=== PATIENT | female | born 1940 | race Caucasian/White ===

== ENCOUNTER → 2018-07-08 | Outpatient (CLI) | payer MEDICARE ==
[2018-07-08 12:24] LABS: Basophils % (A) 1 %; Eosinophils # (A) 0.1 k/uL (0-0.7); Eosinophils % (A) 2 %; HCT 45.9 % (34.0-46.0); HGB 14.8 gm/dL (11.4-16.0); Lymphocytes # (A) 4.1 k/uL (1.0-4.8); Lymphocytes % (A) 47 %; MCH 28.7 pg (25.0-35.0); MCHC 32.2 g/dL (31.0-37.0); Mean Platelet Volume 6.5; Monocytes # (A) 0.4 k/uL (0-1.0); Monocytes % (A) 5 %; Neutrophils # (A) 3.9 k/uL (1.3-7.7); Neutrophils % (A) 45 %; Platelet Count 338 k/uL (150-450); RBC 5.16 m/uL (3.80-5.40); RDW 13.4 % (11.5-15.5); WBC 8.8 k/uL (3.8-10.6)
[2018-07-08 17:10] LABS: Albumin 4.5 g/dL (3.80-4.90); Albumin/Globulin Ratio 1.8 (1.20-2.10); Calcium 9.3 mg/dL (8.7-10.3); Globulin 2.5 g/dL (2.1-3.7); LDL Cholesterol,Calculated 132.8 mg/dL (0.0-131.0); Potassium 4.2 mmol/L (3.5-5.5); Total Bilirubin 0.9 mg/dL (0.3-1.2); VLDL Calculation 23.2 mg/dL (5.00-40.00)
[2018-07-08 17:19] LABS: T4, Free (Free Thyroxine) 1.2 ng/dL (0.80-1.80)
[2018-07-08 19:48] LABS: Hemoglobin A1C 5.8 % (4.0-6.0)
== END | disposition home or self-care (01) ==
LOC: LABWHC1 11:43
PROVIDERS: ATTEND Internal Medicine
DX: Z00.00 Encounter for general adult medical examination without abnormal findings (principal); E78.00 Pure hypercholesterolemia, unspecified; Z79.899 Other long term (current) drug therapy
CPT/HCPCS: 36415; 80053; 80061; 83036; 84439; 84443; 85025

== ENCOUNTER → 2018-10-14 | Outpatient (CLI) | payer MEDICARE ==
--- NOTE | 2018-10-15 13:53 | MM ---
Reason for exam: screening (asymptomatic). Last mammogram was performed 3 years and 2 months ago. History: Patient is postmenopausal. Physical Findings: A clinical breast exam by your physician is recommended on an annual basis and results should be correlated with mammographic findings. MG 3D Screening Mammo W/Cad Bilateral CC and MLO view(s) were taken. Prior study comparison: August 09, 2015, mammogram, performed at [facility]. The breast tissue is extremely dense which could obscure a lesion on mammography. Benign appearing bilateral calcifications. There is a rounded partially visualized obscured lateral posterior depth left asymmetry on 3D CC view image only. ASSESSMENT: Incomplete: need additional imaging evaluation, BI-RAD 0 RECOMMENDATION: Special view mammogram of the left breast. If lesion persists on supplemental views, image directed ultrasound is recommended. [facility] will attempt to contact patient to return for supplemental views and ultrasound if indicated.
== END | disposition home or self-care (01) ==
LOC: RADMAMWWP 13:12
PROVIDERS: ATTEND Internal Medicine
DX: Z12.31 Encounter for screening mammogram for malignant neoplasm of breast (principal)
CPT/HCPCS: 77063; 77067

== ENCOUNTER → 2018-11-10 | Outpatient (CLI) | payer MEDICARE ==
--- NOTE | 2018-11-10 10:49 | MM ---
Reason for exam: additional evaluation requested from abnormal screening. Last mammogram was performed 1 month ago. History: Patient is postmenopausal. Took estrogen for 20 years. Physical Findings: Nurse did not find any significant physical abnormalities on exam. MG 3D Work Up W/Cad LT Spot compression CC, spot compression MLO, and ML view(s) were taken of the left breast. Prior study comparison: October 14, 2018, bilateral MG 3d screening mammo w/cad. August 09, 2015, mammogram, performed at [facility]. Nodular density far posterior left breast at 1 o'clock, 7.5cm from nipple. Ultrasound recommended. These results were verbally communicated with the patient and result sheet given to the patient on 11/10/18. ASSESSMENT: Incomplete: need additional imaging evaluation, BI-RAD 0 RECOMMENDATION: Ultrasound of the left breast.
--- NOTE | 2018-11-10 10:51 | USB ---
Reason for exam: additional evaluation requested from abnormal screening. History: Patient is postmenopausal. Took estrogen for 20 years. US Breast Workup Limited LT Left limited breast ultrasound including focal area of concern, retroareolar and axilla demonstrates a 0.3 x 0.3 x 0.3cm lesion too small to characterize at 12 o'clock, a 0.6 x 0.4 x 0.5cm cystic lesion at 1 o'clock, a 0.6 x 0.5 x 0.7cm lesion at 2 o'clock and duct ectasia at the posterior nipple. These results were verbally communicated with the patient and result sheet given to the patient on 11/10/18. ASSESSMENT: Benign, BI-RAD 2 RECOMMENDATION: Return to routine screening mammogram schedule for both breasts.
== END | disposition home or self-care (01) ==
LOC: RADMAMWWP 08:53
PROVIDERS: ATTEND Internal Medicine
DX: R92.8 Other abnormal and inconclusive findings on diagnostic imaging of breast (principal)
CPT/HCPCS: 77065; 76642; G0279; 77061

== ENCOUNTER → 2019-09-10 | Outpatient (CLI) | payer MEDICARE ==
[2019-09-10 09:42] LABS: Basophils # (A) 0.1 k/uL (0-0.2); Basophils % (A) 1 %; Eosinophils # (A) 0.3 k/uL (0-0.7); Eosinophils % (A) 3 %; HCT 45.1 % (34.0-46.0); HGB 14.5 gm/dL (11.4-16.0); Lymphocytes # (A) 3.9 k/uL (1.0-4.8); Lymphocytes % (A) 42 %; MCH 29.1 pg (25.0-35.0); MCHC 32.1 g/dL (31.0-37.0); MCV 90.6 fL (80.0-100.0); Mean Platelet Volume 6.6; Monocytes # (A) 0.5 k/uL (0-1.0); Monocytes % (A) 5 %; Neutrophils # (A) 4.3 k/uL (1.3-7.7); Neutrophils % (A) 47 %; Platelet Count 351 k/uL (150-450); RBC 4.98 m/uL (3.80-5.40); RDW 12.6 % (11.5-15.5); WBC 9.4 k/uL (3.8-10.6)
[2019-09-10 18:33] LABS: African American GFR (CKD) 70.5 (60.0-200.0); Albumin 4.4 g/dL (3.80-4.90); Albumin/Globulin Ratio 1.83 (1.60-3.17); Anion Gap 7.8 mmol/L (4.00-12.00); BUN/Creat Ratio 13.33 Ratio (12.00-20.00); Calcium 9.5 mg/dL (8.7-10.3); Carbon Dioxide 29.2 mmol/L (21.6-31.8); Chol/HDL Ratio 2.8; Globulin 2.4 g/dL (1.6-3.3); Non-African American GFR(CKD) 60.8 (60.0-200.0); Potassium 4.5 mmol/L (3.5-5.5); Total Bilirubin 0.8 mg/dL (0.2-1.2); Total Protein 6.8 g/dL (6.2-8.2)
[2019-09-10 18:42] LABS: T4, Free (Free Thyroxine) 1.3 ng/dL (0.80-1.80)
== END | disposition home or self-care (01) ==
LOC: LABWHC1 09:24
PROVIDERS: ATTEND Internal Medicine
DX: Z00.00 Encounter for general adult medical examination without abnormal findings (principal); C12 Malignant neoplasm of pyriform sinus; E78.5 Hyperlipidemia, unspecified
CPT/HCPCS: 36415; 80053; 80061; 84439; 84443; 85025

== ENCOUNTER → 2020-10-02 | Outpatient (CLI) | payer MEDICARE ==
[2020-10-02 20:18] LABS: African American GFR (CKD) 80.1 (60.0-200.0); Albumin 4.7 g/dL (3.80-4.90); Albumin/Globulin Ratio 1.96 (1.60-3.17); Anion Gap 7.7 mmol/L (4.00-12.00); BUN/Creat Ratio 21.25 Ratio (12.00-20.00); Calcium 9.5 mg/dL (8.7-10.3); Carbon Dioxide 30.3 mmol/L (21.6-31.8); Chol/HDL Ratio 2.77; Globulin 2.4 g/dL (1.6-3.3); LDL Cholesterol,Calculated 88.2 mg/dL (0.0-131.0); Non-African American GFR(CKD) 69.1 (60.0-200.0); Potassium 4.5 mmol/L (3.5-5.5); Total Bilirubin 0.9 mg/dL (0.3-1.2); Total Protein 7.1 g/dL (6.2-8.2); VLDL Calculation 19.8 mg/dL (5.00-40.00)
[2020-10-02 20:25] LABS: T4, Free (Free Thyroxine) 1.3 ng/dL (0.80-1.80)
[2020-10-02 20:41] LABS: Basophils # (A) 0.03 X 10*3/uL (0.00-0.10); Basophils % (A) 0.4 %; Eosinophils # (A) 0.17 X 10*3/uL (0.04-0.35); Eosinophils % (A) 2.1 %; HCT 45.2 % (37.2-46.3); HGB 14.3 g/dL (12.0-15.0); Lymphocytes # (A) 3.91 X 10*3/uL (0.90-5.00); MCH 29.4 pg (27.0-32.0); MCHC 31.6 g/dL (32.0-37.0); Mean Platelet Volume 9.7 fL (9.5-12.2); Monocytes # (A) 0.71 X 10*3/uL (0.20-1.00); Monocytes % (A) 8.7 %; Neutrophils # (A) 3.32 X 10*3/uL (1.80-7.70); Neutrophils % (A) 40.7 %; Platelet Count 332 X 10*3/uL (140-440); RBC 4.86 X 10*6/uL (4.10-5.20); RDW 12.9 % (11.5-14.5); WBC 8.15 X 10*3/uL (4.50-10.00)
== END ==
LOC: LABWHC1 10:57
PROVIDERS: ATTEND Internal Medicine
DX: Z00.00 Encounter for general adult medical examination without abnormal findings (principal); E78.5 Hyperlipidemia, unspecified; I10 Essential (primary) hypertension
CPT/HCPCS: 36415; 80053; 80061; 84439; 84443; 85025

== ENCOUNTER → 2020-11-27 | Outpatient (CLI) | payer MEDICARE ==
--- NOTE | 2020-11-27 12:40 | US ---
EXAMINATION TYPE: US venous doppler duplex UE RT DATE OF EXAM: 11/27/2020 COMPARISON: NONE CLINICAL HISTORY: 80-year-old female R22.31 right upper limb swelling. The patient received 2nd COVID vaccination 1 week ago, right arm. Edema and redness right upper arm TECHNIQUE: Grayscale, color doppler, spectral doppler imaging performed of the deep veins of the upp er extremities. SIDE PERFORMED: right FINDINGS: There is normal flow, compressibility and vascular waveforms. Additional scanning along the right upp er arm at the site of redness and swelling shows no abnormal fluid collection. Right Arm: no evidence of DVT IMPRESSION: No evidence for DVT within the right upper extremity. Targeted scanning at the site of redness and sw elling shows no abnormal fluid collection.
== END | disposition home or self-care (01) ==
LOC: RADUSWWP 11:56
PROVIDERS: ATTEND Internal Medicine Interventional Cardiology
DX: R22.31 Localized swelling, mass and lump, right upper limb (principal)

== ENCOUNTER 2022-01-08 09:32 | Inpatient (IN) | payer MEDICARE ==
--- NOTE | 2022-01-08 09:50 | ED ---
General Adult HPI - General Chief complaint: Neuro Symptoms/Deficit Stated complaint: Stroke Time Seen by Provider: 01/08/22 09:32 Source: patient, EMS, RN notes reviewed Mode of arrival: EMS Limitations: no limitations - History of Present Illness Initial comments: Patient is a pleasant 81-year-old female presenting to the emergency department with concern for stroke. Patient was drinking her coffee at the time. Onset was 8 AM. Last known well was 8 AM. No history of similar symptoms previously. Patient did not feel well. Patient noticed some speech problems. EMS reports speech problems and left-sided facial droop. They did not notice other symptoms. Patient denies any extremity weakness. No history of similar symptoms previously. Patient states she did have an episode around a week ago where she had some difficulty with vision of her right eye. Otherwise no history of similar symptoms previously. No new onset or severe headache. - Related Data Home Medications Medication Instructions Recorded Confirmed Omeprazole 20 mg PO HS 05/23/14 01/08/22 Simvastatin [Zocor] 80 mg PO HS 05/23/14 01/08/22 amLODIPine [Norvasc] 2.5 mg PO HS 01/08/22 01/08/22 Allergies Allergy/AdvReac Type Severity Reaction Status Date / Time No Known Allergies Allergy Verified 01/08/22 09:58 Review of Systems ROS Statement: Those systems with pertinent positive or pertinent negative responses have been documented in the HPI. ROS Other: All systems not noted in ROS Statement are negative. Constitutional: Denies: fever Eyes: Reports: as per HPI. Denies: eye pain ENT: Denies: ear pain Respiratory: Denies: cough, dyspnea Cardiovascular: Denies: chest pain Endocrine: Denies: fatigue Gastrointestinal: Denies: abdominal pain Genitourinary: Denies: urgency Musculoskeletal: Denies: back pain Skin: Denies: rash Neurological: Reports: as per HPI. Denies: headache, confusion Past Medical History Past Medical History: GERD/Reflux, Hyperlipidemia History of Any Multi-Drug Resistant Organisms: None Reported Past Surgical History: Cholecystectomy, Hysterectomy Past Anesthesia/Blood Transfusion Reactions: No Reported Reaction Past Psychological History: No Psychological Hx Reported Past Alcohol Use History: Daily Past Drug Use History: None Reported General Exam Limitations: no limitations General appearance: alert, in no apparent distress Head exam: Present: normocephalic Eye exam: Present: normal appearance, PERRL, EOMI ENT exam: Present: normal oropharynx Neck exam: Present: normal inspection Respiratory exam: Present: normal lung sounds bilaterally Cardiovascular Exam: Present: regular rate, normal rhythm GI/Abdominal exam: Present: soft. Absent: tenderness Extremities exam: Present: normal inspection Neurological exam: Present: alert, oriented X3, CN II-XII intact (Except for left-sided facial droop) Expanded Neurological exam: Present: protecting the airway, other (Mildly slurred speech) Patient oriented to: Present: person, place, time Cranial nerves: Facial Sensation: Normal, Facial Palsy with Forehead Movement: Abnormal Left Sensory exam: Upper Extremity Light Touch: Normal, Lower Extremity Light Touch: Normal Motor strength exam: RUE: 5, LUE: 5, RLE: 5, LLE: 5 Eye Response: (4) open spontaneously Motor Response: (6) obeys commands Verbal Response: (5) oriented Psychiatric exam: Present: normal affect, normal mood Skin exam: Present: normal color Course Vital Signs 01/08/22 09:39 Temperature 96 F L Pulse Rate 90 Respiratory 18 Rate Blood Pressure 151/72 O2 Sat by Pulse 96 Oximetry - Reevaluation(s) Reevaluation #1: 01/08/22 09:48 coordinator of health services did discuss case with neurology Dr. Brown who agrees patient is not a candidate for TPA secondary to risk outweighed the benefit. Patient has mild symptoms. EKG Findings - EKG Comments: EKG Findings:: Sinus rhythm at 88. MD 173. QRS 68. QT 356. QTc 41. Normal axis. Normal QRS. Nonspecific T waves. Medical Decision Making - Medical Decision Making Patient reevaluated and updated. [facility] [place] physician group has been paged for hospital call. - Lab Data Result diagrams: 01/08/22 09:50 Lab Results 01/08/22 01/08/22 01/08/22 Range/Units 09:50 09:50 09:50 WBC 11.0 H (3.8-10.6) k/uL RBC 4.74 (3.80-5.40) m/uL Hgb 13.7 (11.4-16.0) gm/dL Hct 43.2 (34.0-46.0) % MCV 91.2 (80.0-100.0) fL MCH 29.0 (25.0-35.0) pg MCHC 31.8 (31.0-37.0) g/dL RDW 13.0 (11.5-15.5) % Plt Count 314 (150-450) k/uL MPV 7.2 Neutrophils % 55 % Lymphocytes % 34 % Monocytes % 6 % Eosinophils % 3 % Basophils % 1 % Neutrophils # 6.0 (1.3-7.7) k/uL Lymphocytes # 3.7 (1.0-4.8) k/uL Monocytes # 0.6 (0-1.0) k/uL Eosinophils # 0.3 (0-0.7) k/uL Basophils # 0.1 (0-0.2) k/uL PT 10.4 (9.0-12.0) sec INR 1.0 (<1.2) APTT 23.8 (22.0-30.0) sec POC Glucose (mg/dL) 99 (75-99) mg/dL POC Glu Presentation Team Member Mara Hauser - Radiology Data Radiology results: report reviewed (CT brain shows no acute hemorrhage or infarct. Bilateral anterior basal ganglion hypodensities could represent infarcts of indeterminate age first is chronic extremity changes.), image reviewed (Chest x-ray reviewed) Disposition Clinical Impression: Cerebrovascular accident (CVA) Disposition: ADMITTED IP TO THIS HOSP Is patient prescribed a controlled substance at d/c from ED?: No Referrals: Mario Cuevas MD [Primary Care Provider] - 1-2 days Time of Disposition: 10:10
[2022-01-08 09:51] LABS: Glucose,Whole Blood 99 mg/dL (75-99)
[2022-01-08 09:57] LABS: Basophils # (A) 0.1 k/uL (0-0.2); Basophils % (A) 1 %; Eosinophils # (A) 0.3 k/uL (0-0.7); Eosinophils % (A) 3 %; HCT 43.2 % (34.0-46.0); HGB 13.7 gm/dL (11.4-16.0); Lymphocytes # (A) 3.7 k/uL (1.0-4.8); Lymphocytes % (A) 34 %; MCHC 31.8 g/dL (31.0-37.0); MCV 91.2 fL (80.0-100.0); Mean Platelet Volume 7.2; Monocytes # (A) 0.6 k/uL (0-1.0); Monocytes % (A) 6 %; Neutrophils % (A) 55 %; Platelet Count 314 k/uL (150-450); RBC 4.74 m/uL (3.80-5.40)
--- NOTE | 2022-01-08 09:59 | CT ---
EXAMINATION TYPE: CT brain wo con for TPA DATE OF EXAM: 01/08/2022 COMPARISON: None available HISTORY: neuro deficit, Lt facial droop, slurred speech CT DLP: 1094.8 mGycm Automated exposure control for dose reduction was used. TECHNIQUE: CT scan of the brain is performed without IV contrast administration. FINDINGS: Brain volume loss changes, likely age-related. Bilateral cerebral white matter hypodensities, likely representing chronic microvascular ischemic changes. Bilateral anterior basal ganglia hypodensities w hich could represent infarcts of indeterminate age versus ischemic changes. Scattered arterial athero sclerotic calcifications. No acute intracranial hemorrhage. No gross acute cortical infarct. No midline shift, herniation or ve ntriculomegaly. Unremarkable basal cisterns, sella and CP angles. No gross space-occupying lesion, vasogenic edema or mass effect. Unremarkable orbits. Mucosal thickening of the maxillary sinuses and ethmoid air cells. Clear mastoid air cells. Osteopenia. IMPRESSION: No acute intracranial hemorrhage or gross acute cortical infarct. Bilateral anterior basal ganglia hy podensities which could represent infarcts of indeterminate age versus chronic ischemic changes, plea se correlate clinically. Further MRI with DWI assessment can be considered if clinically required. Ot her findings as described above.
[2022-01-08 10:06] LABS: Partial Thromboplastin Time 23.8 sec (22.0-30.0); Prothrombin Time 10.4 sec (9.0-12.0)
[2022-01-08] MEDS ORDERED: ASPIRIN 325 MG TAB PO STA (10:10)
[2022-01-08 10:13] LABS: Albumin 3.4 g/dL (3.5-5.0); Calcium 8.4 mg/dL (8.4-10.2); Potassium 4.5 mmol/L (3.5-5.1); Total Bilirubin 1.4 mg/dL (0.2-1.3); Total Protein 6.5 g/dL (6.3-8.2)
--- NOTE | 2022-01-08 10:29 | CT ---
EXAMINATION TYPE: CT angio head neck DATE OF EXAM: 01/08/2022 HISTORY: Left side facial droop and slurred speech COMPARISON: Nonenhanced CT brain performed earlier same day CT DLP: 404.3 mGycm. Automated Exposure Control for Dose Reduction was Utilized. TECHNIQUE: CTA scan of the head and neck is performed with IV Contrast, patient injected with 65ml m L of Isovue 370, axial images are obtained, coronal and sagittal reformatted images are reviewed. 3D reconstructed images are created on an independent workstation and reviewed. FINDINGS: Carotid/Vascular Structures: Scattered arterial atherosclerotic calcifications. 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 Other focal stenosis is seen involving the s uperior M2 branch of the left MCA yet patent distally. type left SURGICAL ENDOSCOPIST. Hypoplastic A1 segment of the left EFREN. Otherwise normal caliber and enhancement of the remainder of the intracranial arteries and major neck arteries without other significant stenosis, occlusion, dissection, aneurysm or AV ma lformation. Patent major intracranial venous sinuses. Other: No intracranial abnormal enhancement. Chronic inflammatory changes of the maxillary sinuses. M ild degenerative changes of the cervical spine. Micronodules are seen in the right lung apex. 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 No definite arterial occlusion or other significant stenosis seen in the neck or intracranial arterie s. Other findings as described above.
--- NOTE | 2022-01-08 10:43 | XR ---
EXAMINATION TYPE: XR chest 1V portable DATE OF EXAM: 01/08/2022 COMPARISON: NONE HISTORY: Altered mental status and weakness. TECHNIQUE: Single AP portable frontal upright view of the chest is obtained. FINDINGS: There is mild chronic parenchymal change without suspicious focal air space opacity, pleur al effusion, or pneumothorax seen. The cardiac silhouette size is within normal limits. The osseou s structures are demineralized. IMPRESSION: No acute process.
--- NOTE | 2022-01-08 11:36 | CA ---
Transthoracic Echo Report Name: Theodora Nickerson Age: 81 Gender: F : 1940 Exam Date: 01/08/2022 11:10 Exam Location: [facility] Ht (in): 66 Wt (lb): 190 Ordering Physician: Mor Escalante DO Attending/Referring Phys: Casing Material Weigher Natalia De Leon RDCS Procedure CPT: Indications: Thrombus Cardiac Hx: Technical Quality: Fair Contrast 1: Total Dose (mL): Contrast 2: Total Dose (mL): MEASUREMENTS (Male / Female) Normal Values 2D ECHO LV Diastolic Diameter PLAX 2.6 cm 4.2 - 5.9 / 3.9 - 5.3 cm LV Systolic Diameter PLAX 1.3 cm IVS Diastolic Thickness 1.3 cm 0.6 - 1.0 / 0.6 - 0.9 cm LVPW Diastolic Thickness 1.4 cm 0.6 - 1.0 / 0.6 - 0.9 cm LV Relative Wall Thickness 1.0 M-MODE Aortic Root Diameter MM 3.1 cm LA Systolic Diameter MM 2.3 cm LA Ao Ratio MM 0.7 MV E Point Septal Separation 0.7 cm AV Cusp Separation MM 1.5 cm DOPPLER AV Peak Velocity 135.3 cm/s AV Peak Gradient 7.3 mmHg LVOT Peak Velocity 116.3 cm/s LVOT Peak Gradient 5.4 mmHg MV Area PHT 2.9 cm??? MR Peak Velocity 136.2 cm/s MR Peak Gradient 7.4 mmHg Mitral E Point Velocity 60.2 cm/s Mitral A Point Velocity 91.3 cm/s Mitral E to A Ratio 0.7 MV Deceleration Time 263.1 ms TR Peak Velocity 180.4 cm/s TR Peak Gradient 13.0 mmHg Right Ventricular Systolic Press 17.0 mmHg FINDINGS Left Ventricle Moderately increased septal wall thickness. Moderately increased posterior wall thickness. Left ventricular cavity size normal. Left ventricular ejection fraction is estimated at 55-60 %. Right Ventricle The right ventricle is normal in size and function. Right Atrium The right atrium is normal in size. Left Atrium The left atrium is normal in size. Mitral Valve Structurally normal mitral valve without significant stenosis or prolapse. There is a trace of mitral regurgitation. Aortic Valve Structurally normal aortic valve without significant sclerosis or stenosis.focal thickening of the aortic valve cusps. There is no aortic regurgitation. Tricuspid Valve Structurally normal tricuspid valve without significant stenosis. Pulmonary artery systolic pressure is normal. Trace tricuspid regurgitation. Pulmonic Valve Structurally normal pulmonic valve without significant stenosis. There is no pulmonic regurgitation. Pericardium Normal pericardium without effusion. Aorta Normal aortic root dimension. CONCLUSIONS concentric left ventricular hypertrophy with normal LV systolic function Aortic sclerosis without any stenosis Previewed by: Dr. Jamie Redmond MD (Electronically Signed) Final Date: 08 Jan 2022 11:35
--- NOTE | 2022-01-08 13:23 | P.HPIM ---
History of Present Illness H&P Date: 01/08/22 History of Presenting Illness: Patient is a very pleasant 81-year-old female with a past medical history of hypertension, hyperlipidemia, and GERD. She presented to the emergency department with a chief complaint of speech problems and left sided facial dr oop. Patient reports that this morning around 8 AM she was sitting down drinking coffee got up to take her 's temperature and cover him with a blanket. Patient reports she noticed that her speech started to sound slightly and that her left hand was not communicating with her brain because she was not able to go/down the thermometer with a blanket. She reports she was then told she had some left-sided facial droop and felt almost like a "fog" come over her so she called the ambulance for transport to the hospital. Patient denied experiencing any recent illnesses or exposure to known ill contacts, headache, lightheadedness, dizziness, changes in her vision or hearing, dysphagia, chest pain, palpitations, shortness of breath, or experiencing any numbness or focal weakness in her extremities. At time of evaluation, pt continued to have noted slight left sided facial droop however speech was clear and pt reported full resolution of left hand coordination and function. Patient underwent full evaluation in the emergency department. She was found to have mild leukocytosis with WBC count of 11.0 and slightly elevated total bili of 1.4. CT brain revealed bilateral anterior basal ganglia hypodensities possibly representing infarcts of indeterminate age versus chronic ischemic changes. CTA head and neck revealed severe focal stenosis of the M1 segment of the right MCA with focal stenosis of the left superior M2 branch of the left MCA with no other noted definite arterial occlusion or other significant stenosis seen in the neck or intracranial arteries. EKG showing normal sinus rhythm at 88 bpm with no noted T-wave or ST abnormalities showing no signs of acute ischemia. Chest x-ray negative for acute cardiopulmonary process. Patient was given aspirin 325 mg 1 dose and admitted under our services with consultation to neurology. clinic coordinator was contacted by ED physician and it was reported that interventional neurologist stated patient was not a candidate for TPA. Review of systems: Pertinent positives and negatives as discussed in HPI, a complete review of systems was performed and all other systems are negative. Physical exam: Vital signs reviewed and stable. General: Nontoxic, no distress and appears stated age. Derm: Skin warm and dry, normal coloration for ethnicity. Head: Atraumatic, normocephalic and symmetric. Eyes: EOMs intact, no lid lag, and anicteric sclera Mouth: no lip lesions, mucus membranes moist Cardiovascular: regular rate and rhythm with normal S1S2, systolic murmur, positive posterior tibial pulses bilaterally, and cap refill < 2 seconds. Lungs: Respirations even, regular, and unlabored on room air. Lungs CTA bilaterally, no rhonchi, no rales, no wheezing, and no accessory muscle usage. Abdominal: soft, nontender to palpation, no guarding, no appreciable organomegaly Ext: ROM intact. No gross muscle atrophy, no edema, no contractures Neuro: Speech clear, face symmetrical and CN II-XII grossly intact with no noted focal neuro deficits Psych: Alert and oriented to person, place, time, and situation. Appropriate and pleasant affect. Assessment and Plan of Care: Left-sided facial droop, speech deficits, and loss of hand coordination/function likely secondary to acute vs subacute ischemic CVA Hypertension Hyperlipidemia -Consult neurology, appreciate further recommendations -Continue NIH assessments and neuro checks -Telemetry monitoring -Lipid profile and hemoglobin A1c with a.m. labs -Echocardiogram -Continue daily aspirin and atorvastatin -Allow for permissive hypertension, may resume home medication regimen with amlodipine 2.5 mg nightly tomorrow evening. -PT/OT consult -Bedside swallow eval and then may resume heart healthy diet if no difficulties with swallowing. The patient is admitted with an anticipated greater than 2 midnight stay for evaluation of left-sided facial droop, speech deficits, and was having and coordination with concerns of acute versus subacute ischemic CVA. CODE STATUS: full code DVT prophylaxis: Lovenox Discussed with: patient and RN Anticipated discharge date: clinical course to determine, likely 2-[address]: home A total of 41 minutes was spent on the care of this complex patient more than 50% of the time was spent in counseling and care coordination. I reviewed the documentation as provided by the JADE above, who is the original author of this note. I agree with the documented assessment and plan, with the following changes: none Past Medical History Past Medical History: GERD/Reflux, Hyperlipidemia History of Any Multi-Drug Resistant Organisms: None Reported Past Surgical History: Cholecystectomy, Hysterectomy Past Anesthesia/Blood Transfusion Reactions: No Reported Reaction Past Psychological History: No Psychological Hx Reported Past Alcohol Use History: Daily Past Drug Use History: None Reported Medications and Allergies Home Medications Medication Instructions Recorded Confirmed Type Omeprazole 20 mg PO HS 05/23/14 01/08/22 History Simvastatin [Zocor] 80 mg PO HS 05/23/14 01/08/22 History amLODIPine [Norvasc] 2.5 mg PO HS 01/08/22 01/08/22 History Allergies Allergy/AdvReac Type Severity Reaction Status Date / Time No Known Allergies Allergy Verified 01/08/22 09:58 Physical Exam Vitals: Vital Signs Temp Pulse Resp BP Pulse Ox 01/08/22 10:12 85 18 149/76 96 01/08/22 09:39 96 F L 90 18 151/72 96 Intake and Output 01/07/22 01/08/22 01/08/22 22:59 06:59 14:59 Other: Weight 86.5 kg Results CBC & Chem 7: 01/08/22 09:50 01/08/22 09:50 Labs: Abnormal Lab Results - Last 24 Hours (Table) 01/08/22 01/08/22 Range/Units 09:50 09:50 WBC 11.0 H (3.8-10.6) k/uL Sodium 136 L (137-145) mmol/L Glucose 108 H (74-99) mg/dL Total Bilirubin 1.4 H (0.2-1.3) mg/dL Albumin 3.4 L (3.5-5.0) g/dL
[2022-01-08] MEDS ORDERED: CLOPIDOGREL 75 MG TAB PO STA (13:40)
--- NOTE | 2022-01-08 14:02 | P.CNNES ---
History of Present Illness Consult date: 01/08/22 Requesting physician: Mor Escalante Reason for Consult: cva History of Present Illness: This is an 81-year-old woman with history of hypertension and hypercholesteremia who presented emergency department on 01/08/2022 for left facial droop and lack of hand coordination. Patient stated that the she woke up early in the morning today and she was doing well until 8a.m. today. She felt there is loss of coordination of hand and did not know if left or right. Denies of any other neurological issues. Denies of numbness, visual disturbance, difficulty getting her words out. EMS felt she has speech problems per ED team. About one week ago she had vision loss over the entire right eye that last 10 seconds but did not seek any medication attention. She denies of headaches. She is not on antiplatelets or anticoagulants. She denies history of TIA or stroke otherwise. Denies tobacco use or illicit drug use. Some of the work-up: CT of the head is reported as no acute intracranial hemorrhage or gross acute cortical infarct. Bilateral anterior basal ganglia hypodensities which could represent infarct of and determine age versus chronic ischemic changes. I personally reviewed the CT of the head and I agree there is no acute subacute changes and I feel the basal ganglia and it's reported is not acute and there at least either subacute to more chronic. CT angiography of the head and neck was reported as severe focal stenosis of the M1 segment of the right MCA with focal stenosis of the left superior M2 branch of the left MCA. No definite of arterial occlusion or other significant stenosis in the neck or intracranial arteries. Stroke pager was activated and the ED spoke with the the stroke attending who felt the patient is not IV TPA candidate since the risk outweighed the benefits because of the NIH stroke scale is low, mild symptoms. Review of Systems Review of system: The 12 point system was reviewed and apparent positive and negative per HPI. Past Medical History Past Medical History: GERD/Reflux, Hyperlipidemia History of Any Multi-Drug Resistant Organisms: None Reported Past Surgical History: Cholecystectomy, Hysterectomy Past Anesthesia/Blood Transfusion Reactions: No Reported Reaction Past Psychological History: No Psychological Hx Reported Past Alcohol Use History: Daily Past Drug Use History: None Reported Medications and Allergies Home Medications Medication Instructions Recorded Confirmed Type Omeprazole 20 mg PO HS 05/23/14 01/08/22 History Simvastatin [Zocor] 80 mg PO HS 05/23/14 01/08/22 History amLODIPine [Norvasc] 2.5 mg PO HS 01/08/22 01/08/22 History Allergies Allergy/AdvReac Type Severity Reaction Status Date / Time No Known Allergies Allergy Verified 01/08/22 09:58 Physical Examination - Vital Signs Vital Signs: Vital Signs Temp Pulse Resp BP Pulse Ox 01/08/22 10:12 85 18 149/76 96 01/08/22 09:39 96 F L 90 18 151/72 96 Intake and Output 01/07/22 01/08/22 01/08/22 22:59 06:59 14:59 Other: Weight 86.5 kg GENERAL: The patient is lying in bed and is not in acute distress. CHEST: The heart rate is regular rate rhythm. No murmurs to auscultation. No carotid bruit bilaterally. LUNG: Clear to auscultation bilaterally no wheezing noted throughout. Not labored breathing. ABDOMEN/GI: Bowel sounds present in all 4 quadrants. No tenderness to palpation throughout. NEUROLOGICAL: Higher mental function: The patient is awake, alert, oriented to self, place and time. Patient is following commands. No aphasia and no neglect. Cranial nerves: The pupils are round, equal and reactive to light and accommodation. Visual [place] are full to confrontation throughout. Extraocular movement is intact no nystagmus is noted. Facial sensation is normal to touch throughout. The facial strength is left nasolabial flattening. Hearing is moderately to severely decreased bilaterally to hand rub. Tongue is midline and moved [id number] without any difficulty. No dysarthria is noted. Shoulder shrug is normal bilaterally. Motor: Gait is deferred. The strength is 5 over 5 throughout. Normal tone and bulk. Cerebellum: Normal finger to nose heel to jean bilaterally. Sensation: Sensation is normal to touch throughout. Reflexes (right/left): 2+ thorughout. Plantars are downgoing bilaterally. NIH STROKE SCALE (On my examination): 1 (left facial droop). Results - Laboratory Findings CBC and BMP: 01/08/22 09:50 01/08/22 09:50 Abnormal Lab Findings: Abnormal Labs 01/08/22 01/08/22 09:50 09:50 WBC 11.0 H Sodium 136 L Glucose 108 H Total Bilirubin 1.4 H Albumin 3.4 L Assessment and Plan Assessment: Acute left facial droop with loss of hand coordination: Due to acute ischemic stroke. No IV tpa since low NIH/mild symptoms and risk outweigh benefit. 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 The patient to be on dual antiplatelets for now. I loaded the patient on the Plavix 300 mg once. Lipitor 40 mg daily started. Patient did not get any intervention for the stenosis for intracranial stenosis since low NIH. If the patient has worsening of her stroke symptoms please activate the stroke pager for consideration of intervention. 2-D echo, lipid panel, hemoglobin A1c are ordered and is pending PT, OT and EXTENSION DIVISION DIRECTOR are consulted Continue neuro checks On cardiac monitoring Recommend permissive hypertensive for 24 hours only controlled blood pressure of the systolic is more than 220 and diastolic is more than 110 and we'll defer that to the primary team We'll defer the rest of the medical management to the primary team. For DVT prophylaxis on Lovenox Thank you for consultation. Gavin Velazquez M.D. Neuro-hospitalist Time with Patient: Greater than 30
[2022-01-08] MEDS: SODIUM CHLORIDE 0.9% 1,000 ML IV SCH (18:06)
[2022-01-09] MEDS: SODIUM CHLORIDE 0.9% 1,000 ML IV SCH ×4 (01:56→23:35)
[2022-01-09] MEDS: ENOXAPARIN 40 MG/0.4 ML SYRINGE SQ SCH (09:08)
[2022-01-09] MEDS: ATORVASTATIN 40 MG TAB PO SCH (09:09)
[2022-01-09] MEDS: CLOPIDOGREL 75 MG TAB PO SCH (09:09)
[2022-01-09] MEDS: ASPIRIN 325 MG TAB PO SCH (09:09)
--- NOTE | 2022-01-09 12:06 | P.PN ---
Subjective Progress Note Date: 01/09/22 The patient is seen at bedside and feel about the same. Denies any new neurological issues. She feels much better compared to her initial presentation. Objective - Vital Signs Vital signs: Vital Signs Temp 98 F 01/09/22 05:13 Pulse 86 01/09/22 05:13 Resp 16 01/09/22 05:13 BP 154/68 01/09/22 05:13 Pulse Ox 97 01/09/22 05:13 Intake & Output 01/08/22 01/09/22 01/09/22 18:59 06:59 18:59 Intake Total 290 120 Output Total 2 Balance 290 118 Weight 86.5 kg 83.7 kg Intake: Intake, IV Titration 50 Amount Sodium Chloride 0.9% 1, 50 000 ml @ 100 mls/hr IV . Q10H DARÍO Rx#:[id number] Oral 240 120 Output: Urine 2 Other: # Voids 1 1 - Exam GENERAL: The patient is lying in bed and is not in acute distress. NEUROLOGICAL: Higher mental function: The patient is awake, alert, oriented to self, place and time. Patient is following commands. No aphasia and no neglect. Cranial nerves: The pupils are round, equal and reactive to light and accommodation. Visual [place] are full to confrontation throughout. Extraocular movement is intact no nystagmus is noted. Facial sensation is normal to touch throughout. The facial strength is left nasolabial flattening. Hearing is moderately to severely decreased bilaterally to hand rub. Tongue is midline and moved [id number] without any difficulty. No dysarthria is noted. Shoulder shrug is normal bilaterally. Motor: Gait is deferred. The strength is 5 over 5 throughout. Normal tone and bulk. Cerebellum: Normal finger to nose heel to jean bilaterally. Sensation: Sensation is normal to touch throughout. Reflexes (right/left): 2+ thorughout. Plantars are downgoing bilaterally. WORK-UP: HbA1c: 5.7 CT of the head is reported as no acute intracranial hemorrhage or gross acute cortical infarct. Bilateral anterior basal ganglia hypodensities which could represent infarct of and determine age versus chronic ischemic changes. I personally reviewed the CT of the head and I agree there is no acute subacute ch anges and I feel the basal ganglia and it's reported is not acute and there at least either subacute to more chronic. CT angiography of the head and neck was reported as severe focal stenosis of the M1 segment of the right MCA with focal stenosis of the left superior M2 branch of the left MCA. No definite of arterial occlusion or other significant stenosis in the neck or intracranial arteries. 2D echo: Concentric left ventircular hypertrophy with normal LV systolic function. Aortic sclerosis without any stenosis. Left atrium is normal in size. - Labs CBC & Chem 7: 01/08/22 09:50 01/08/22 09:50 Assessment and Plan Assessment: Acute left facial droop with loss of hand coordination: Due to acute ischemic stroke. No IV tpa since low NIH/mild symptoms and risk outweigh benefit. 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 Continue aspirin 325mg daily and Plavix 75mg daily. The patient to be on dual antiplatelets for now. ContinueLipitor 40 mg daily started. Patient did not get any intervention for the stenosis for intracranial stenosis since low NIH. If the patient has worsening of her stroke symptoms please activate the stroke pager for consideration of intervention. Pending Lipid panel. PT, OT and UTILIZATION COORDINATOR are consulted Continue neuro checks On cardiac monitoring We'll defer the rest of the medical management to the primary team. For DVT prophylaxis on Lovenox The plan is discussed with the patient. Gavin Velazquez M.D. Neuro-hospitalist Time with Patient: Less than 30
[2022-01-09 12:12] LABS: Chol/HDL Ratio 2.75 Ratio; LDL Cholesterol,Calculated 60.3 mg/dL (0.0-131.0)
--- NOTE | 2022-01-09 13:42 | MR ---
EXAMINATION TYPE: MR brain wo con DATE OF EXAM: 01/09/2022 1:37 PM COMPARISON: NONE HISTORY: Stroke, left facial weakness. FINDINGS: The ventricles, basal cisterns and sulci overlying the cerebral convexities are moderately enlarged. There is evidence of mild to moderate periventricular white matter ischemic demyelination. Remote deep white matter insults are also noted. No acute edema is seen on diffusion weighted imaging. There is no evidence for midline shift or mass effect. Acute intracranial hemorrhage or extra-axial collection is not evident. Chronic pansinusitis. IMPRESSION: Age-related atrophic and chronic small vessel ischemic change. No acute intracranial process at this time.
--- NOTE | 2022-01-09 14:15 | P.PN ---
Subjective Progress Note Date: 01/09/22 Hospital Course: Patient is a very pleasant 81-year-old female with a past medical history of hypertension, hyperlipidemia, and GERD. She presented to the emergency department with a chief complaint of speech problems and left sided facial droop. Patient reports that this morning around 8 AM she was sitting down drinking coffee got up to take her 's temperature and cover him with a blanket. Patient reports she noticed that her speech started to sound slightly and that her left hand was not communicating with her brain because she was not able to go/down the thermometer with a blanket. She reports she was then told she had some left-sided facial droop and felt almost like a "fog" come over her so she called the ambulance for transport to the hospital. Patient underwent full evaluation in the emergency department. She was found to have mild leukocytosis with WBC count of 11.0 and slightly elevated total bili of 1.4. CT brain revealed bilateral anterior basal ganglia hypodensities possibly representing infarcts of indeterminate age versus chronic ischemic changes. CTA head and neck revealed severe focal stenosis of the M1 segment of the right MCA with focal stenosis of the left superior M2 branch of the left MCA with no other noted definite arterial occlusion or other significant stenosis seen in the neck or intracranial arteries. EKG showing normal sinus rhythm at 88 bpm with no noted T-wave or ST abnormalities showing no signs of acute ischemia. Chest x-ray negative for acute cardiopulmonary process. Patient was given aspirin 325 mg 1 dose and admitted under our services with consultation to neurology. computer security coordinator was contacted by ED physician and it was reported that interventional neurologist stated patient was not a candidate for TPA. Lipid profile unremarkable. Hemoglobin A1c also normal findings at 5.7%. E chocardiogram revealing preserved EF of 55-60% with concentric left ventricular hypertrophy and aortic sclerosis without stenosis. MRI scheduled for 10:30 AM. Physical exam: Patient was seen and fully evaluated at bedside this morning. She was sitting u p in the edge of the bed and appeared to be doing well. Patient reports she feels much better than yesterday. She continues to have mild facial droop of the left corner of her mouth otherwise denied experiencing any complaints including headache, lightheadedness, dizziness, changes in her vision or hearing, dysphagia, chest pain, palpitations, shortness of breath, or experiencing any numbness or focal weakness in her extremities. She continues to have clear speech and continued resolution of left hand coordination and function. Vital signs stable. We have allowed for permissive hypertension and patient to resume her daily medication regimen with amlodipine later this evening. Patient is scheduled to go down for MRI later this morning at 10:30 AM. We will continue DVT prophylaxis with Lovenox as well as daily aspirin, atorvastatin, and Plavix. Lipid profile unremarkable. Hemoglobin A1c also normal findings at 5.7. Vital signs reviewed and stable. General: Nontoxic, no distress and appears stated age. Derm: Skin warm and dry, normal coloration for ethnicity. Head: Atraumatic, normocephalic and symmetric. Eyes: EOMs intact, no lid lag, and anicteric sclera Mouth: no lip lesions, mucus membranes moist Cardiovascular: regular rate and rhythm with normal S1S2, systolic murmur, positive posterior tibial pulses bilaterally, and cap refill < 2 seconds. Lungs: Respirations even, regular, and unlabored on room air. Lungs CTA bi laterally, no rhonchi, no rales, no wheezing, and no accessory muscle usage. Abdominal: soft, nontender to palpation, no guarding, no appreciable organomegaly Ext: ROM intact. No gross muscle atrophy, no edema, no contractures Neuro: Speech clear, face with mild left sided facial droop. CN II-XII grossly intact with no other noted focal neuro deficits Psych: Alert and oriented to person, place, time, and situation. Appropriate and pleasant affect. Assessment and Plan of Care: Left-sided facial droop, speech deficits, and loss of hand coordination/function likely secondary to acute vs subacute ischemic CVA Hypertension Hyperlipidemia -Consult neurology, appreciate further recommendations -Continue NIH assessments and neuro checks -Telemetry monitoring -Lipid profile unremarkable and hemoglobin A1c 5.7%. -Echocardiogram revealing EF of 55-60%, concentric left ventricular hypertrophy and aortic sclerosis without stenosis. -Continue daily aspirin, Plavix and atorvastatin -Allow for permissive hypertension, may resume home medication regimen with amlodipine 2.5 mg nightly tomorrow evening. -PT/OT consult -Bedside swallow eval and then may resume heart healthy diet if no difficulties with swallowing. CODE STATUS: Full code DVT prophylaxis: Lovenox Discussed with: patient and RN Anticipated discharge date: clinical course to determine, possibly tomorrow morning pending MRI results and neurology recommendations. Anticipated discharge place: home A total of 37 minutes was spent on the care of this complex patient more than 50% of the time was spent in counseling and care coordination. I reviewed the documentation as provided by the JADE above, who is the original author of this note. I agree with the documented assessment and plan, with the following changes: none Objective - Vital Signs Vital signs: Vital Signs Temp 98 F 01/09/22 05:13 Pulse 86 01/09/22 05:13 Resp 16 01/09/22 05:13 BP 154/68 01/09/22 05:13 Pulse Ox 97 01/09/22 05:13 Intake & Output 01/08/22 01/09/22 01/09/22 18:59 06:59 18:59 Intake Total 290 Balance 290 Weight 86.5 kg 83.7 kg Intake: Intake, IV Titration 50 Amount Sodium Chloride 0.9% 1, 50 000 ml @ 100 mls/hr IV . Q10H DARÍO Rx#:[id number] Oral 240 Other: # Voids 1 1 - Labs CBC & Chem 7: 01/08/22 09:50 01/08/22 09:50 Labs: Abnormal Lab Results - Last 24 Hours (Table) 01/08/22 01/08/22 Range/Units 09:50 09:50 WBC 11.0 H (3.8-10.6) k/uL Sodium 136 L (137-145) mmol/L Glucose 108 H (74-99) mg/dL Total Bilirubin 1.4 H (0.2-1.3) mg/dL Albumin 3.4 L (3.5-5.0) g/dL
[2022-01-09] MEDS ORDERED: amLODIPine 2.5 MG TAB PO SCH (21:00)
[2022-01-10] MEDS: CLOPIDOGREL 75 MG TAB PO SCH (06:19)
[2022-01-10] MEDS: ASPIRIN 325 MG TAB PO SCH (06:19)
[2022-01-10] MEDS: ATORVASTATIN 40 MG TAB PO SCH (06:19)
[2022-01-10] MEDS: ENOXAPARIN 40 MG/0.4 ML SYRINGE SQ SCH (06:19)
[2022-01-10] MEDS: SODIUM CHLORIDE 0.9% 1,000 ML IV SCH (06:21)
[2022-01-10 08:46] VITALS: BP 134/63; PULSE 88; RESP 20; TEMP 97.6
--- NOTE | 2022-01-10 09:16 | P.DS ---
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 She presented to the emergency department with a chief complaint of speech problems and left sided facial droop. Patient reports that this morning around 8 AM she was sitting down drinking coffee got up to take her 's temperature and cover him with a blanket. Patient reports she noticed that her speech started to sound slightly and that her left hand was not communicating with her brain because she was not able to go/down the thermometer with a blanket. She reports she was then told she had some left-sided facial droop and felt almost like a "fog" come over her so she called the ambulance for transport to the hospital. Patient underwent full evaluation in the emergency department. She was found to have mild leukocytosis with WBC count of 11.0 and slightly elevated total bili of 1.4. CT brain revealed bilateral anterior basal ganglia hypodensities possibly representing infarcts of indeterminate age versus chronic ischemic changes. CTA head and neck revealed severe focal stenosis of the M1 segment of the right MCA with focal stenosis of the left superior M2 branch of the left MCA with no other noted definite arterial occlusion or other significant stenosis seen in the neck or intracranial arteries. EKG showing normal sinus rhythm at 88 bpm with no noted T-wave or ST abnormalities showing no signs of acute ischemia. Chest x-ray negative for acute cardiopulmonary process. Patient was given aspirin 325 mg 1 dose and admitted under our services with consultation to neurology. revenue coordinator was contacted by ED physician and it was reported that interventional neurologist stated patient was not a candidate for TPA. Lipid profile unremarkable. Hemoglobin A1c also normal findings at 5.7%. Echocardiogram revealing preserved EF of 55-60% with concentric left ventricular hypertrophy and aortic sclerosis without stenosis. MRI was negative for acute intercranial process revealing age-related atrophic and chronic small vessel ischemic changes. Patient had full resolution of facial droop, fogginess, loss of hand coordination/function and previously reported slurred speech. Discussed with neurology, patient to remain on Plavix and aspirin for 90 days and follow up outpatient in Dr. Campbell's office. Patient is medically stable for discharge at this time. Patient to follow-up with PCP and neurology as discussed. Physical exam: Vital signs reviewed and stable. General: Nontoxic, no distress and appears stated age. Derm: Skin warm and dry, normal coloration for ethnicity. Head: Atraumatic, normocephalic and symmetric. Eyes: EOMs intact, no lid lag, and anicteric sclera Mouth: no lip lesions, mucus membranes moist Cardiovascular: regular rate and rhythm with normal S1S2, systolic murmur, positive posterior tibial pulses bilaterally, and cap refill < 2 seconds. Lungs: Respirations even, regular, and unlabored on room air. Lungs CTA bilaterally, no rhonchi, no rales, no wheezing, and no accessory muscle usage. Abdominal: soft, nontender to palpation, no guarding, no appreciable organomegaly Ext: ROM intact. No gross muscle atrophy, no edema, no contractures Neuro: Speech clear, face symmetrical. CN II-XII grossly intact with no noted fo myriam neuro deficits Psych: Alert and oriented to person, place, time, and situation. Appropriate and pleasant affect. A total of 39 minutes of time were spent preparing this complex discharge summar y. Pt was discharged on 01/10/22 at 9:15 AM I reviewed the documentation as provided by the JADE above, who is the original author of this note. I agree with the documented assessment and plan, with the following changes: none Patient Condition at Discharge: Stable Plan - Discharge Summary Discharge Rx Participant: Yes New Discharge Prescriptions: New Aspirin 81 mg PO DAILY 30 Days #30 tab Clopidogrel [Plavix] 75 mg PO DAILY 30 Days #30 tab Continue Simvastatin [Zocor] 80 mg PO HS Omeprazole 20 mg PO HS amLODIPine [Norvasc] 2.5 mg PO HS Discharge Medication List Omeprazole 20 mg PO HS 05/23/14 [History] Simvastatin [Zocor] 80 mg PO HS 05/23/14 [History] amLODIPine [Norvasc] 2.5 mg PO HS 01/08/22 [History] Aspirin 81 mg PO DAILY 30 Days #30 tab 01/10/22 [Rx] Clopidogrel [Plavix] 75 mg PO DAILY 30 Days #30 tab 01/10/22 [Rx] Follow up Appointment(s)/Referral(s): Mario Cuevas MD [Primary Care Provider] - 1-2 days Gavin Velazquez MD [STAFF PHYSICIAN] - 2 Weeks (Gavin Velazquez [facility] [id number] . [facility] [id number] ) Patient Instructions/Handouts: Heart Healthy Diet (DC) Activity/Diet/Wound Care/Special Instructions: Activity: As tolerated. Take breaks as needed. Diet: Heart healthy and carb consistent diet. Avoid salts, or foods with hidden salts such as canned or boxed foods and frozen dinners. Extra salt makes your heart work harder and traps the fluid in your body for longer. Special Instructions: Take all of your medications as directed and remember to keep all of your doctor's appointments and follow-up as needed. He will need to follow up outpatient with the neurologist for continued and long-term monitoring of your stenosis. It is recommended that you continue aspirin and Plavix for 90 days and after 90 days you may just take aspirin daily. Thank you for allowing us to participate in your care, it was truly a pleasure having you for our patient!!! Discharge Disposition: HOME SELF-CARE
--- NOTE | 2022-01-10 16:17 | P.PN ---
Subjective Progress Note Date: 01/10/22 The patient is seen at bedside and feels she is doing better. Denies of any other neurological issues. Objective - Vital Signs Vital signs: Vital Signs Temp 97.6 F 01/10/22 08:00 Pulse 88 01/10/22 08:00 Resp 20 01/10/22 08:00 BP 134/63 01/10/22 08:00 Pulse Ox 95 01/10/22 08:00 Intake & Output 01/09/22 01/10/22 01/10/22 18:59 06:59 18:59 Intake Total 360 500 240 Output Total 2 Balance 358 500 240 Intake: Oral 360 500 240 Output: Urine 2 Other: Voiding Method Toilet Toilet # Voids 2 2 - Exam GENERAL: The patient is lying in bed and is not in acute distress. NEUROLOGICAL: Higher mental function: The patient is awake, alert, oriented to self, place and time. Patient is following commands. No aphasia and no neglect. Cranial nerves: The pupils are round, equal and reactive to light and accommodation. Visual [place] are full to confrontation throughout. Extraocular movement is intact no nystagmus is noted. Facial sensation is normal to touch throughout. The facial strength is left nasolabial flattening. Hearing is moderately to severely decreased bilaterally to hand rub. Tongue is midline and moved [id number] without any difficulty. No dysarthria is noted. Shoulder shrug is normal bilaterally. Motor: Gait is deferred. The strength is 5 over 5 throughout. Normal tone and bulk. Cerebellum: Normal finger to nose heel to jean bilaterally. Sensation: Sensation is normal to touch throughout. Reflexes (right/left): 2+ thorughout. Plantars are downgoing bilaterally. WORK-UP: Lipid panel is triglyceride of 83, cholesterol is 121, LDL 60 and HDL 44. HbA1c: 5.7 CT of the head is reported as no acute intracranial hemorrhage or gross acute cortical infarct. Bilateral anterior basal ganglia hypodensities which could represent infarct of and determine age versus chronic ischemic changes. I personally reviewed the CT of the head and I agree there is no acute subacute changes and I feel the basal ganglia and it's reported is not acute and there at least either subacute to more chronic. CT angiography of the head and neck was reported as severe focal stenosis of the M1 segment of the right MCA with focal stenosis of the left superior M2 branch of the left MCA. No definite of arterial occlusion or other significant stenosis in the neck or intracranial arteries. 2D echo: Concentric left ventircular hypertrophy with normal LV systolic function. Aortic sclerosis without any stenosis. Left atrium is normal in size. MRI of the brain is reported as age-related atrophic and chronic small vessel ischemic change. No acute intracranial process seen at this time. I personally could not review the image since the image is not uploaded to the system and there is only report. - Labs CBC & Chem 7: 01/08/22 09:50 01/08/22 09:50 Assessment and Plan Assessment: Acute mild left facial droop with loss of hand coordination---improving: TIA (MRI is negative for stroke. 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 ContinueLipitor 40 mg daily started. PT, OT and BUSINESS ANALYST PROJECT MANAGER are consulted Continue neuro checks On cardiac monitoring We'll defer the rest of the medical management to the primary team. For DVT prophylaxis on Lovenox Patient needs to follow-up with a neurologist as outpatient within 1-2 weeks. The plan is discussed with the patient and primary team. No additional work-up needed and patient is clear for discharge. Gavin Velazquez M.D. Neuro-hospitalist Time with Patient: Less than 30
== END 2022-01-10 11:51 | disposition home or self-care (01) | DRG 68 ==
LOC: EC 09:32 → 3SCARD 10:10 → 4SSUR 12:45 → 3SCARD 15:05
PROVIDERS: ADMIT Internal Medicine; ATTEND Internal Medicine
DX: I66.01 Occlusion and stenosis of right middle cerebral artery (principal); G45.9 Transient cerebral ischemic attack, unspecified; I11.9 Hypertensive heart disease without heart failure; E78.00 Pure hypercholesterolemia, unspecified; I35.8 Other nonrheumatic aortic valve disorders; R29.810 Facial weakness; R47.81 Slurred speech; R27.8 Other lack of coordination; K21.9 Gastro-esophageal reflux disease without esophagitis; Z90.49 Acquired absence of other specified parts of digestive tract; E78.5 Hyperlipidemia, unspecified; D72.829 Elevated white blood cell count, unspecified; Z79.899 Other long term (current) drug therapy; Z87.19 Personal history of other diseases of the digestive system; Z90.710 Acquired absence of both cervix and uterus; Z87.42 Personal history of other diseases of the female genital tract; Z98.890 Other specified postprocedural states
CPT/HCPCS: 36415; 70450; 70496; 70498; 70551; 71045; 80053; 80061; 83036; 84484; 85025; 85610; 85730; 93005; 93306; 99285

== ENCOUNTER 2022-04-26 11:10 | Outpatient (CLI) | payer MEDICARE | END 2022-04-26 11:13 | disposition home or self-care (01) | LOC: LABWHC1 11:10 | PROVIDERS: ATTEND Internal Medicine | DX: Z53.9 Procedure and treatment not carried out, unspecified reason (principal) ==

== ENCOUNTER → 2024-06-16 | Outpatient (CLI) | payer MEDICARE ==
[2024-06-16 15:46] LABS: ALT 12 U/L (8-44); AST 20 U/L (13-35); Albumin 4.3 g/dL (3.8-4.9); Albumin/Globulin Ratio 1.48 Ratio (1.60-3.17); Alkaline Phosphatase 92 U/L (41-126); BUN/Creat Ratio 16.45 Ratio (12.00-20.00); Blood Urea Nitrogen 18.1 mg/dL (9.0-27.0); Calcium 9.6 mg/dL (8.7-10.3); Carbon Dioxide 27.5 mmol/L (21.6-31.8); Chloride 103 mmol/L (96-109); Chol/HDL Ratio 2.67 Ratio; Globulin 2.9 g/dL (1.6-3.3); Glucose 101 mg/dL (70-110); LDL Cholesterol,Calculated 102.8 mg/dL (0.0-131.0); Potassium 4.4 mmol/L (3.5-5.5); Sodium 142 mmol/L (135-145); Total Bilirubin 0.7 mg/dL (0.3-1.2); Total Protein 7.2 g/dL (6.2-8.2); VLDL Calculation 13.48 mg/dL (5.00-40.00)
[2024-06-16 15:47] LABS: T4, Free (Free Thyroxine) 1.32 ng/dL (0.80-1.80)
== END | disposition home or self-care (01) ==
LOC: LABWHC1 09:11
PROVIDERS: ATTEND Internal Medicine
CPT/HCPCS: 36415; 80053; 80061; 82306; 82607; 83036; 84439; 84443; 85652; 86038; 86140